=== PATIENT | male | born 1990 | race Caucasian/White ===

== ENCOUNTER 2017-08-18 03:51 | Emergency (ER) | payer SELFPAY ==
[2017-08-18 03:55] VITALS: BP 147/109; PULSE 99; RESP 14; TEMP 36.6; O2SAT 97; BMI 25.8
--- NOTE | 2017-08-18 04:14 | HMH.EDMCLR ---
ED Disposition Clinical Impression: Medical clearance for incarceration Disposition: Home, Self-Care Condition on Discharge: Good Instructions: Drug Abuse and Drug Addiction - Critical Care Critical Care Time: No Attestation: On 08/18/17, the high probability of a clinically significant, sudden or life threatening deterioration of the following system(s) required my full and direct attention, intervention and personal management. The time I documented below is in addition to time spent performing reported procedures but includes the following listed in this critical care notation. Medical Decision Making - Medical Records Medical records reviewed: Yes: I reviewed the patient's medical records. Vital Signs: 08/18/17 03:55 Temperature 97.9 F Temperature Source Oral Pulse Rate [Right Radial] 99 H Respiratory Rate 14 Blood Pressure [Right Arm] 147/109 Blood Pressure Mean [Right Arm] 121 Blood Pressure Source [Right Arm] Automatic Cuff Blood Pressure Position [Right Arm] Sitting 02 Sat by Pulse Oximetry 97 Oxygen Delivery Method Room Air - Lab Data Lab results reviewed: Yes: I reviewed the patient's lab results. - Kiko Inquiry Pt receiving controlled substance: No Medical Clearance HPI - General Chief complaint: Medical Clearance Stated complaint: Medical Clearance Time Seen by Provider: 08/18/17 04:14 Mode of Arrival: Ambulatory Source of Information: Patient, Medical Record Limitations: No Limitations Description of Symptoms (Recalled from ER Triage Doc. by RN): marijuana and meth a couple hours ago - History of Present Illness HPI Narrative: pt w/o any c/o MD complaint: medical clearance requested Onset (ago): hour(s) Reason for Medical Clearance: other (using drugs ) Place: home Alleged Intoxication: Yes Traumatic Symptoms: denies traumatic injury Home medications: Home Medications Medication Instructions Recorded Confirmed No Known Home Medications [No 08/18/17 08/18/17 Known Home Medications] Allergies/Adverse reactions: Allergies Allergy/AdvReac Type Severity Reaction Status Date / Time Cefaclor Allergy Unknown Uncoded 06/13/17 14:52 [facility] History I have reviewed the patient's past medical history: Yes Medical History: Denies:: Cancer, Diabetes Mellitus Type 1, Diabetes Mellitus Type 2, MRSA Amputation: No Fractures: No - Social History Smoking Status: Current every day smoker Alcohol Intake: current Alcohol Intake Frequency:: 3 or more drinks per day Substance Use Type: marijuana, crack/cocaine, methamphetamine - Psychiatric History Expresses thoughts of harming self/others: None Suicide Plan Description: No Plan ROS Obtained: Yes All systems reviewed & no additional complaints - Constitutional Constitutional: Denies fever(s) - Eyes Eyes: Denies change in vision - ENT Ears, Nose, Mouth, and Throat: Denies sore throat - Cardiovascular Cardiovascular: Denies chest pain at rest - Respiratory Respiratory: No chest congestion - Gastrointestinal Gastrointestingal: Denies: abdominal pain - Musculoskeletal Musculoskeletal: Denies joint pain - Integumentary/Breasts Skin/Breast: Denies rash - Neurologic Neurologic: Denies seizure-like activity Physical Exam - General General appearance: alert, in no apparent distress - Head Head exam: normocephalic - Eye Eye exam: Present: PERRL, EOMI. Absent: scleral icterus - ENT ENT exam: Present: mucous membranes moist - Neck Neck exam: Present: trachea midline - Respiratory Respiratory exam: Present: normal lung sounds bilaterally. Absent: respiratory distress - Cardiovascular Cardiovascular exam: Present: regular rate. Absent: systolic murmur - Abdominal Exam Abdominal exam: Present: soft - Extremities Exam Extremities exam: Present: full ROM - Neurological Exam Neurological exam: Present: alert, oriented X3, CN II-XII intact - Skin Skin exam: Absent: rash
--- NOTE | 2017-08-18 04:18 | ED_ITS ---
ED Disposition Clinical Impression: Medical clearance for incarceration Disposition: Home, Self-Care Condition on Discharge: Good Instructions: Drug Abuse and Drug Addiction - Critical Care Critical Care Time: No Attestation: On 08/18/17, the high probability of a clinically significant, sudden or life threatening deterioration of the following system(s) required my full and direct attention, intervention and personal management. The time I documented below is in addition to time spent performing reported procedures but includes the following listed in this critical care notation. Medical Decision Making - Medical Records Medical records reviewed: Yes: I reviewed the patient's medical records. Vital Signs: 08/18/17 03:55 Temperature 97.9 F Temperature Source Oral Pulse Rate [Right Radial] 99 H Respiratory Rate 14 Blood Pressure [Right Arm] 147/109 Blood Pressure Mean [Right Arm] 121 Blood Pressure Source [Right Arm] Automatic Cuff Blood Pressure Position [Right Arm] Sitting 02 Sat by Pulse Oximetry 97 Oxygen Delivery Method Room Air - Lab Data Lab results reviewed: Yes: I reviewed the patient's lab results. - Kiko Inquiry Pt receiving controlled substance: No Medical Clearance HPI - General Chief complaint: Medical Clearance Stated complaint: Medical Clearance Time Seen by Provider: 08/18/17 04:14 Mode of Arrival: Ambulatory Source of Information: Patient, Medical Record Limitations: No Limitations Description of Symptoms (Recalled from ER Triage Doc. by RN): marijuana and meth a couple hours ago - History of Present Illness HPI Narrative: pt w/o any c/o MD complaint: medical clearance requested Onset (ago): hour(s) Reason for Medical Clearance: other (using drugs ) Place: home Alleged Intoxication: Yes Traumatic Symptoms: denies traumatic injury Home medications: Home Medications Medication Instructions Recorded Confirmed No Known Home Medications [No 08/18/17 08/18/17 Known Home Medications] Allergies/Adverse reactions: Allergies Allergy/AdvReac Type Severity Reaction Status Date / Time Cefaclor Allergy Unknown Uncoded 06/13/17 14:52 [facility] History I have reviewed the patient's past medical history: Yes Medical History: Denies:: Cancer, Diabetes Mellitus Type 1, Diabetes Mellitus Type 2, MRSA Amputation: No Fractures: No - Social History Smoking Status: Current every day smoker Alcohol Intake: current Alcohol Intake Frequency:: 3 or more drinks per day Substance Use Type: marijuana, crack/cocaine, methamphetamine - Psychiatric History Expresses thoughts of harming self/others: None Suicide Plan Description: No Plan ROS Obtained: Yes All systems reviewed & no additional complaints - Constitutional Constitutional: Denies fever(s) - Eyes Eyes: Denies change in vision - ENT Ears, Nose, Mouth, and Throat: Denies sore throat - Cardiovascular Cardiovascular: Denies chest pain at rest - Respiratory Respiratory: No chest congestion - Gastrointestinal Gastrointestingal: Denies: abdominal pain - Musculoskeletal Musculoskeletal: Denies joint pain - Integumentary/Breasts Skin/Breast: Denies rash - Neurologic Neurologic: Denies seizure-like activity Physical Exam - Genera
[2017-08-18 04:27] VITALS: BP 138/64; PULSE 74; RESP 16; TEMP -17.7; TEMP 0; O2SAT 96
== END 2017-08-18 04:27 | disposition home or self-care (01) ==
PROVIDERS: Emergency Provider Emergency Medicine; Family Provider Family Medicine
DX: F10.10 Alcohol abuse, uncomplicated (principal); F17.210 Nicotine dependence, cigarettes, uncomplicated; F12.10 Cannabis abuse, uncomplicated; F19.10 Other psychoactive substance abuse, uncomplicated
CPT/HCPCS: 99282

== ENCOUNTER 2020-02-12 04:44 | Emergency (ER) | payer OTHER, SELFPAY ==
[2020-02-12 04:45] VITALS: BP 135/81; PULSE 131; RESP 18; TEMP 36.8; O2SAT 98; BMI 28.8
--- NOTE | 2020-02-12 05:02 | HMH.EDMCLR ---
ED Disposition Clinical Impression: Medical clearance for incarceration Disposition: Home, Self-Care Condition on Discharge: Good Instructions: DI for Drug or Alcohol Withdrawal Referrals: PCP,No [Primary Care Provider] - - Critical Care Critical Care Time: No Attestation: On 02/12/20, the high probability of a clinically significant, sudden or life threatening deterioration of the following system(s) required my full and direct attention, intervention and personal management. The time I documented below is in addition to time spent performing reported procedures but includes the following listed in this critical care notation. Medical Decision Making - Medical Records Medical records reviewed: Yes: I reviewed the patient's medical records. - Kiko Inquiry Pt receiving controlled substance: No Vital Signs: 02/12/20 04:45 Temperature 98.2 F Temperature Source Oral Pulse Rate [Left Radial] 131 H Respiratory Rate 18 Blood Pressure [Right Arm] 135/81 Blood Pressure Mean [Right Arm] 99 Blood Pressure Source [Right Arm] Automatic Cuff Blood Pressure Position [Right Arm] Sitting 02 Sat by Pulse Oximetry 98 Oxygen Delivery Method Room Air Medical Clearance HPI - General Chief complaint: Medical Clearance Stated complaint: Medical Clearance Time Seen by Provider: 02/12/20 05:00 Mode of Arrival: Ambulatory Source of Information: Patient, Medical Record Description of Symptoms (Recalled from ER Triage Doc. by RN): pt brought in for medical clearence. pt reports using meth and heroine yesterday. pt denies any pain at this time. - History of Present Illness HPI Narrative: no specific c/o MD complaint: medical clearance requested Onset (ago): hour(s) Reason for Medical Clearance: medical condition Place: street Traumatic Symptoms: denies traumatic injury Associated Symptoms: denies other symptoms Treatments Prior to Arrival: none Home medications: Home Medications Medication Instructions Recorded Confirmed No Known Home Medications 08/18/17 08/18/17 Allergies/Adverse reactions: Allergies Allergy/AdvReac Type Severity Reaction Status Date / Time Cefaclor Allergy Unknown Uncoded 06/13/17 14:52 [facility] History - Hepatitis A Screen Drug use history?: No High risk sexual behaviors?: No History of sexually transmitted infection?: No Currently employed?: No Childcare worker?: No Do you have indoor plumbing?: Yes Do you have electricity?: Yes Attestation statement:: This patient has been screened for Hepatitis A risk factors. I have reviewed the patient's past medical history: Yes Medical History: Denies:: Cancer, Diabetes Mellitus Type 1, Diabetes Mellitus Type 2, MRSA Amputation: No Fractures: No - Social History Smoking Status: Current every day smoker Tobacco Type: cigarettes # Packs/Day (cigarettes): 1 Alcohol Intake: never Alcohol Intake Frequency:: holidays/special occasions only Substance Use Type: heroin, methamphetamine Last Used Substance: days (ago) Occupational Status: unemployed ROS Obtained: Yes All systems reviewed & no additional complaints - Constitutional Constitutional: Denies fever(s) - Eyes Eyes: Denies eye discharge - ENT Ears, Nose, Mouth, and Throat: Denies sore throat - Cardiovascular Cardiovascular: Denies chest pain - Respiratory Respiratory: No dyspnea - Gastrointestinal Gastrointestingal: Denies: vomiting - Genitourinary Male Genitourinary: Denies hematuria - Musculoskeletal Musculoskeletal: Denies joint swelling - Integumentary/Breasts Skin/Breast: Denies rash - Neurologic Neurologic: Denies focal weakness, Denies tingling/numbness/burning sensations Physical Exam - General General appearance: alert, in no apparent distress - Head Head exam: normocephalic - Eye Eye exam: Present: PERRL, EOMI - ENT ENT exam: Present: normal oropharynx, mucous membranes moist - Neck Neck exam: Present: trachea midline
[2020-02-12 05:05] VITALS: BP 142/83; PULSE 111; RESP 16; TEMP 36.8; O2SAT 98
[2020-02-12 05:10] VITALS: PULSE 116
== END 2020-02-12 05:14 | disposition home or self-care (01) ==
PROVIDERS: Emergency Provider Emergency Medicine
DX: Z00.8 Encounter for other general examination (principal); F11.10 Opioid abuse, uncomplicated; F17.210 Nicotine dependence, cigarettes, uncomplicated
CPT/HCPCS: 99283

== ENCOUNTER → 2021-06-23 13:23 | Outpatient (CLI) | payer BC, OTHER, SELFPAY | PROVIDERS: Visit Provider Nurse Practitioner | DX: Z20.822 Contact with and (suspected) exposure to COVID-19 (principal) | CPT/HCPCS: C9803; U0003; U0005 ==

== ENCOUNTER → 2021-07-21 13:46 | Outpatient (CLI) | payer MEDICAID, SELFPAY | PROVIDERS: Visit Provider Nurse Practitioner | DX: Z20.822 Contact with and (suspected) exposure to COVID-19 (principal) | CPT/HCPCS: C9803; U0003; U0005 ==

== ENCOUNTER 2022-05-01 18:47 | Emergency (ER) | payer MEDICAID, SELFPAY ==
[2022-05-01 18:48] VITALS: BP 127/76; PULSE 87; RESP 17; TEMP 36.7; O2SAT 98; BMI 24.3
--- NOTE | 2022-05-01 19:29 | HMH.EDGENADL ---
Discharge Plan Disposition Patient Disposition: Home, Self-Care Condition: Good Prescriptions Prescriptions: No Action No Known Home Medications Referrals Follow up/Referrals: Provider,Referral, MD [Primary Care Provider] - See instructions Clinical Impressions Clinical Impression: Medical clearance for incarceration, Opioid abuse Discharge ED Provider: Sacha Garcia General Adult HPI General Chief complaint: Medical Clearance Stated complaint: medical clearance Time Seen by Provider: 05/01/22 19:00 Mode of Arrival: Ambulatory Source of Information: Patient and Law Enforcement Limitations: No Limitations Description of Symptoms (Recalled from ER Triage Doc. by RN): Pt is brought by PD for medical clearance. Pt states today he has used drugs, snorted suboxone and fentanyl. He denies any issues. He is A&Ox4. He reports a little nausea but no vomiting. History of Present Illness HPI narrative: Patient is a 32-year-old male who presents with concern for medical clearance. He reports that earlier today he started Suboxone and fentanyl. He says that this happened approximately an hour and a half prior to arrival. He denies any shortness of breath. Denies any chest pain. Denies any numbness or tingling. Denies any trauma. Denies any other coingestions. He does state that he feels a little bit nauseous but has not vomited. Related Data Home Medications Medication Instructions Recorded Confirmed No Known Home Medications 08/18/17 08/18/17 Allergies Allergy/AdvReac Type Severity Reaction Status Date / Time Cefaclor Allergy Unknown Uncoded 06/13/17 14:52 [facility] PFSH Social History Smoking Status: Current every day smoker tobacco type: cigarettes packs per day: 1 alcohol intake: never substance use type: heroin and methamphetamine current occupational status: unemployed Travel in the last 8 weeks: None ROS Obtained: Yes All systems reviewed & no additional complaints except as documented A 14 point review of system was performed otherwise negative except per HPI Physical Exam General General appearance: alert and in no apparent distress Head Head exam: atraumatic, normocephalic and normal inspection Eye Eye exam: Present normal appearance, PERRL and EOMI ENT ENT exam: Present normal exam, normal oropharynx, mucous membranes moist, TM's normal bilaterally and normal external ear exam Neck Neck exam: Present normal inspection, full ROM and trachea midline; Absent meningismus or lymphadenopathy Chest Chest inspection: Present normal inspection and symmetric chest wall rise; Absent tenderness Respiratory Respiratory exam: Present normal lung sounds bilaterally; Absent respiratory distress Cardiovascular Cardiovascular exam: Present regular rate and normal rhythm; Absent JVD Abdominal Exam Abdominal exam: Present soft and normal bowel sounds; Absent distention, tenderness or guarding Extremities Exam Extremities exam: Present normal inspection, full ROM and normal capillary refill; Absent calf tenderness Back Exam Back exam: Present normal inspection; Absent tenderness Neurological Exam Neurological exam: Present alert and oriented X3 Psychiatric Psychiatric exam: Present normal affect and normal mood Skin Skin exam: Present warm, dry, intact and normal color Lymphatic Lymphatic Findings: no adenopathy Medical Decision Making Medical Records Medical records reviewed: Yes I reviewed the patient's medical records. Kiko Inquiry Pt receiving controlled substance: No Vital Signs: 05/01/22 18:48 05/01/22 19:45 05/01/22 19:45 Temperature 98.1 F 98.2 F Temperature Source Oral Oral Pulse Rate 80 Pulse Rate [Right] 87 Respiratory Rate 17 18 Blood Pressure 122/66 Blood Pressure [Right Arm] 127/76 Blood Pressure Mean [Right Arm] 93 Blood Pressure Source [Right Arm] Automatic Cuff 02 Sat by Pulse Oximetry 98 Oxygen Delivery Method Room Air Room Air R
[2022-05-01 19:45] VITALS: BP 122/66; PULSE 80; RESP 18; TEMP 36.8; O2SAT 98
== END 2022-05-01 19:52 | disposition home or self-care (01) ==
PROVIDERS: Emergency Provider Student in an Organized Health Care Education/Training Program
DX: F11.10 Opioid abuse, uncomplicated (principal); R11.0 Nausea; F17.210 Nicotine dependence, cigarettes, uncomplicated; Z88.8 Allergy status to other drugs, medicaments and biological substances
CPT/HCPCS: 99282

== ENCOUNTER 2023-11-15 13:40 | Emergency (ER) | payer MEDICAID, SELFPAY ==
[2023-11-15 13:41] VITALS: BP 119/70; PULSE 103; RESP 18; TEMP 36.8; O2SAT 98; BMI 25.8
[2023-11-15 14:04] LABS: UTC Strep Screen (Rapid) Positive (Negative)
--- NOTE | 2023-11-15 14:04 | ED_ITS ---
Discharge Plan Disposition Patient Disposition: Home, Self-Care Condition: Good Prescriptions Prescriptions: New prednisone 20 mg tablet 20 mg PO BID 3 Days Qty: 6 0RF amoxicillin 875 mg tablet 875 mg PO Q12H Qty: 20 0RF [id number] [Bromfed DM] 2-30-10 mg/5 mL Syrup 5 ml PO Q6H PRN (Reason: Cough) Qty: 240 0RF Referrals Follow up/Referrals: Provider,Referral, MD [Primary Care Provider] - See instructions Activity Restrictions/Add. Instructions Additional Instructions/Restrictions: Drink plenty of fluids. Take tylenol or ibuprofen for pain or fever. Take the medications as directed. Follow up with your regular doctor. GO TO THE ER FOR ANY WORSENING SYMPTOMS Throw your tooth brush away and get a new one. Clinical Impressions Clinical Impression: Strep throat Stand Alone Forms Stand Alone Forms: Work/School Release Instructions Patient Instructions: Strep Throat, DI for Strep Throat Discharge ED Provider: Michael Echevarria [facility] General Stated complaint: sore throat, headache Mode of Arrival: Ambulatory Source of Information: Patient Limitations: No Limitations Time Seen by Provider: 11/15/23 14:04 Description of Symptoms (Recalled from Triage Doc. by RN): Pt's symptoms are GARCIA, sore throat, and body aches. HEENT Symptoms (Recalled from RN notes): Yes Resp Symptoms (Recalled from RN notes): No Skin Symptoms (Recalled from RN notes): No MS Symptoms (Recalled from RN notes): No Functional Status (Recalled from RN notes): n/a History of Present Illness Provider Complaint: He states that for the past 2 days he has had worsening sore throat, chills, and malaise. Related Data Previous Rx's Medication Instructions Recorded amoxicillin 875 mg tablet 875 mg PO Q12H #20 tabs 11/15/23 [id number] 5 ml PO Q6H PRN Cough #240 mL 11/15/23 2 mg-30 mg-10 mg/5 mL oral syrup (Bromfed DM) prednisone 20 mg tablet 20 mg PO BID 3 days #6 tabs 11/15/23 Allergies Allergy/AdvReac Type Severity Reaction Status Date / Time Cefaclor Allergy Unknown Uncoded 06/13/17 14:52 Worker's Comp Is this a Worker's Comp case?: No [facility] Disclaimer: The information contained in this section may have been updated after the patient was seen, as this information can be updated by other users. Social History Smoking Status: Current every day smoker tobacco type: cigarettes packs per day: 1 alcohol intake: never substance use type: heroin and methamphetamine current occupational status: unemployed Travel in the last 8 weeks: None ROS Obtained: Yes All systems reviewed & no additional complaints except as documented Constitutional Constitutional: Reports chills and Reports fever(s) Eyes Eyes: Denies eye discharge ENT Ears, Nose, Mouth, and Throat: Reports as per HPI Cardiovascular Cardiovascular: Denies chest pain Respiratory Respiratory: Denies chest congestion and Reports cough Gastrointestinal Gastrointestingal: Reports nausea; Denies abdominal pain, constipation, cramping, diarrhea or vomiting Musculoskeletal Musculoskeletal: Denies arthralgias Integumentary/Breasts Skin/Breast: Denies rash Neurologic Neurologic: Denies paresthesias Physical Exam General General appearance: alert and in no apparent distress Head Head exam: atraumatic, normocephalic and normal inspection Eye Eye exam: Present normal appearance, PERRL and EOMI ENT ENT exam: Present mucous membranes moist and normal external ear exam Expanded ENT Exam TM/Canal exam: Bilateral TM: erythema and bulging Nose exam: Absent sinus tenderness Mouth exam: Present normal external inspection; Absent drooling Teeth exam: Present normal inspection Throat exam: Present tonsillar erythema, tonsillomegaly and tonsillar exudate Neck Neck exam: Present normal inspection, full ROM and trachea midline; Absent tenderness, meningismus or lymphadenopathy Chest Chest inspection: Present normal inspection and symmetric chest wall rise; Absent tenderness Respiratory Respiratory exam: Present normal lung sounds bilaterally; Absent respiratory distress, wheezes, stridor or accessory muscle use Cardiovascular Cardiovascular exam: Present regular rate and normal rhythm; Absent systolic murmur or diastolic murmur Abdominal Exam Abdominal exam: Present soft and normal bowel sounds; Absent distention, tenderness, guarding, rebound or rigidity Extremities Exam Extremities exam: Present normal inspection and normal capillary refill; Absent calf tenderness Back Exam Back exam: Present normal inspection and full ROM; Absent tenderness, CVA tenderness (R) or CVA tenderness (L) Neurological Exam Neurological exam: Present alert, oriented X3 and CN II-XII intact Psychiatric Psychiatric exam: Present normal affect and normal mood Skin Skin exam: Present warm, dry, intact and normal color Medical Decision Making Medical Records Medical records reviewed: No I reviewed the patient's medical records. Kiko Inquiry Pt receiving controlled substance: No Vital Signs: 11/15/23 13:41 Temperature 98.2 F Temperature Source Oral Pulse Rate [Right Radial] 103 H Respiratory Rate 18 Blood Pressure [Right Arm] 119/70 Blood Pressure Mean [Right Arm] 86 Blood Pressure Source [Right Arm] Automatic Cuff Blood Pressure Position [Right Arm] Sitting 02 Sat by Pulse Oximetry 98 Oxygen Delivery Method Room Air Lab Data Lab results reviewed: Yes I reviewed the patient's lab results. Lab Results 11/15/23 13:58: Strep Scn [facility] Positive A
[2023-11-15 14:32] VITALS: BP 0/0; PULSE 96; RESP 18; TEMP 36.9; O2SAT 97
== END 2023-11-15 14:32 | disposition home or self-care (01) ==
PROVIDERS: Emergency Provider Nurse Practitioner Family
DX: J02.0 Streptococcal pharyngitis (principal); R51.9 Headache, unspecified; R68.83 Chills (without fever); R53.81 Other malaise; J02.9 Acute pharyngitis, unspecified; F17.210 Nicotine dependence, cigarettes, uncomplicated
CPT/HCPCS: 87880; 99204; 99212; G0463

== ENCOUNTER 2024-12-16 04:27 | Emergency (ER) | payer OTHER, SELFPAY ==
[2024-12-16 04:33] VITALS: BP 155/75; PULSE 96; RESP 18; TEMP 36.6; O2SAT 99; BMI 27.3
--- NOTE | 2024-12-16 04:43 | ED_ITS ---
Discharge Plan Disposition Patient Disposition: Home, Self-Care Prescriptions Prescriptions: No Action buprenorphine-naloxone [Suboxone] 8-2 mg film 2 film buccal DAILY Rx Instructions: place 1 film on inside of (each) cheek Referrals Follow up/Referrals: Christiano Camarena APRN [Primary Care Provider, Family Practice] - See instructions Activity Restrictions/Add. Instructions Additional Instructions/Restrictions: Please apply erythromycin ointment as discussed. Consider following up with an eye doctor if symptoms worsen or do not improve. Clinical Impressions Clinical Impression: Acute foreign body of right cornea Qualifiers: Encounter type: initial encounter Qualified Code(s): T15.01XA - Foreign body in cornea, right eye, initial encounter Print Language Print Language: Nigerian Discharge ED Provider: Parminder Flores Adult HPI General Chief complaint: Eye Problems Stated complaint: AO 12/15/24 1700 FB right eye Time Seen by Provider: 12/16/24 04:43 Mode of Arrival: Ambulatory Source of Information: Patient Description of Symptoms (Recalled from ER Triage Doc. by RN): Pt presents to the ED for evaluation of possible foriegn body to his right eye, pt reports to working on a house with my mom reporting that he has been trying to flush his eye at home with no succsess. History of Present Illness HPI narrative: 35-year-old male without significant past medical history presents for concern for right eye foreign body. He reports that he was moving around some wood yesterday when he felt something get into his eye. He tried to wash out and use a Q-tip but it still in there. He and his significant other report there is a small black dot that they can see in the right eye. He reports pain and irritation. Related Data Home Medications ?Medication ?Instructions ?Recorded ?Confirmed buprenorphine 8 mg-naloxone 2 mg 2 film buccal DAILY 0 11/13/24 11/18/24 sublingual film (Suboxone) Allergies Allergy/AdvReac Type Severity Reaction Status Date / Time Cefaclor Allergy Unknown Uncoded 06/13/17 14:52 [facility] Disclaimer: The information contained in this section may have been updated after the patient was seen, as this information can be updated by other users. Social History (Updated 11/13/24 @ 16:00 by ELISEO Rodriguez) Smoking Status: Current every day smoker tobacco type: cigarettes packs per day: 1 alcohol intake: never substance use type: former substance user current occupational status: unemployed Travel in the last 8 weeks?: None marital status: single number of children: 1 education level: high school service: No chcf: No Have you lived/traveled outside US in past 30 days?: No Contact w/someone who lives/traveled outside US past 30 days?: No Exposure to someone with infectious disease in past 14 days?: No Do you have a fever (greater than 100.4 F or 38 C)?: No Have you tested positive for COVID-19?: No Exposed to someone with COVID-19 in past 14 days?: No Do you have a sore throat?: No Do you have a cough?: No Do you have any weakness?: No Do you have any diarrhea?: No Are you experiencing any unusual bleeding?: No Do you have any muscle aches/pain?: No Do you have any abdominal pain?: No Are you experiencing loss of taste or smell?: No Other Medical History Have you received the Flu Vaccine for this season: No Have you received the Pneumonia Vaccine: No ROS Obtained: Yes All systems reviewed & no additional complaints except as documented Physical Exam General General appearance: alert and in no apparent distress Head Head exam: atraumatic and normocephalic Eye Eye exam: Present PERRL, EOMI and other (Right eye conjunctival injection, small black foreign body in the 8 o'clock position of the cornea. No other fluorescein uptake noted.) ENT ENT exam: Present normal oropharynx and normal external ear exam Neck Neck exam: Present normal inspection and full ROM Chest Chest inspection: Present normal inspection and symmetric chest wall rise; Absent tenderness Respiratory Respiratory exam: Present normal lung sounds bilaterally; Absent respiratory distress Cardiovascular Cardiovascular exam: Present regular rate and normal rhythm Abdominal Exam Abdominal exam: Present soft; Absent distention, tenderness or guarding Extremities Exam Extremities exam: Present normal inspection; Absent edema or joint swelling Back Exam Back exam: Present normal inspection; Absent tenderness Neurological Exam Neurological exam: Present alert and oriented X3; Absent motor sensory deficit Psychiatric Psychiatric exam: Present normal affect and normal mood Skin Skin exam: Present warm, dry and normal color Lymphatic Lymphatic Findings: no adenopathy Medical Decision Making Medical Records Medical records reviewed: Yes I reviewed the patient's medical records. Screening: Per USPSTF and CDC recommendations, given the prevalence of disease in our region, it is our hospital?s policy to screen for HIV and viral Hepatitis for all patients aged 18 and over and those with ongoing risk factors. Kiko Inquiry Pt receiving controlled substance: No Kiko was queried for this patient: No Vital Signs: 12/16/24 04:33 12/16/24 05:10 Temperature 98 F 98 F Temperature Source Oral Oral Pulse Rate 95 H Pulse Rate [Radial] 96 H Respiratory Rate 18 16 Blood Pressure 130/72 Blood Pressure [Right Arm] 155/75 H Blood Pressure Mean [Right Arm] 101 Blood Pressure Source Automatic Cuff Blood Pressure Position Sitting Blood Pressure Position [Right Arm] Sitting 02 Sat by Pulse Oximetry 99 Oxygen Delivery Method Room Air Room Air Lab Data Lab results reviewed: Yes I reviewed the patient's lab results. Orders (Tests/Meds): ED MEDICATIONS Discontinued Medications Generic Name Dose Route Start Last Admin Trade Name Freq PRN Reason Stop Dose Admin Erythromycin 1 gm 12/16/24 05:21 Erythromycin Base 1 Gm Oint...G. OP 12/16/24 05:22 ONCE ONE Eye Irrigation Solution 120 ml 12/16/24 05:21 Eye Wash Irrigation Soln 118ml Bottle OP 12/16/24 05:22 ONCE ONE Fluorescein Sodium 1 mg 12/16/24 05:21 Fluorescein Sodium 1mg Strip OP 12/16/24 05:22 ONCE ONE Tetracaine HCl 0 ml 12/16/24 05:21 Tetracaine 0.5% Opth Jia 15ml OP 12/16/24 05:22 ONCE ONE Medical Decision Narrative: 34-year-old male without significant past medical history presents for right eye foreign body. History was obtained via interactive discussion with patient. On arrival, patient is [afebrile, hemodynamically stable, satting appropriately, alert, oriented x4, GCS 15], moving all extremities spontaneously. Full physical exam performed and significant for small black spot in the right 8 o'clock position on the cornea. Differential diagnosis includes but not limited to corneal foreign body, globe injury, corneal abrasion. Physical exam is consistent with isolated corneal foreign body, no other areas of fluorescein uptake. Attempted to irrigate without success. The spot was removed with a Q-tip. No retained foreign body noted. Patient discharged with erythromycin ointment. Recommended he follow-up with ophthalmology if symptoms worsen or do not improve. Procedures Risk/Benefits of Procedure(s) Were Explained: Yes Eye Exam/FB Removal Location: eye (R) Topical anesthetic used: tetracaine Fluorescein Stick(s) used: Yes Time Out performed: Yes Procedure performed under: direct visualization with magnification Foreign body: metal Evidence of corneal penetration: No Technique: irrigation and cotton tip swab Post-procedure medication: ophthalmic antibiotic Eye irrigated w/saline (#ccs): 200 Patient tolerated procedure: well and no complications Critical Care Critical Care Time Critical Care Time: No
--- OUTSIDE RECORDS SUMMARY | 2024-12-16 04:47 | XMS_ITS | Encounter Summary ---
Author Organization Healthcare Address [address] [id number] Care Team Providers Care Supervisor Process Testing Name Role Phone Pcp, No Primary Care Provider Unavailabl e Encounter Details Date Type Department Care Team ([facility] st Contact Info) Description 05/03/2024 Orders Only External Location [address] [place] [address] Provider, External Social History Tobacco Use Types Packs/Day Years Used Date Smoking Tobacco: Never Assessed Sex and Gender Information Value Date Recorded Sex Assigned at Not on file Legal Sex Male 3:25 PM EST Gender Identity Not on file Sexual Orientation Not on file documented as of this encounter Plan of Treatment Not on file documented as of this encounter Procedures Procedure Name Priority Date/Time Associated Diagnosis Comments XR MSK OUTSIDE IMAGES 05/03/2024 1:55 PM EST documented in this encounter Results * XR MSK OUTSIDE IMAGES (05/03/2024 1:55 PM EST) Anatomical Region Laterality Modality Radiographic Mary ging 05/03/2024 1:55 PM EST us External Provider IMG XR PROCEDURES Final Result documented in this encounter Visit Diagnoses Not on filedocumented in this encounter Care Teams Supervisor Process Testing Relationship Specialty Start Date End Date Pcp, No [address] [place] [address] PCP - General Family Medicine 05/21/24 documented as of this encounter
--- OUTSIDE RECORDS SUMMARY | 2024-12-16 04:47 | XMS_ITS | Encounter Summary ---
Author Organization Healthcare Address [address] [id number] Care Team Providers Care Pelt Grader Name Role Phone Pcp, No Primary Care Provider Unavailabl e Encounter Details Date Type Department Care Team ([facility] st Contact Info) Description 05/03/2024 Orders Only External Location [address] [place] [address] Provider, External Social History Tobacco Use Types [...] Name Priority Date/Time Associated Diagnosis Comments XR OUTSIDE IMAGES 05/03/2024 2:06 PM EST documented in this encounter Results * XR OUTSIDE IMAGES (05/03/2024 2:06 PM EST) Anatomical Region Laterality Modality Radiographic Mary ging 05/03/2024 2:06 PM EST us External Provider IMG XR PROCEDURES Final Result documented in this encounter Visit Diagnoses Not on filedocumented in this encounter Care Teams Pelt Grader Relationship Specialty Start Date End Date Pcp, No [address] [place] [address] PCP - General Family Medicine 05/21/24 documented as of this encounter
--- OUTSIDE RECORDS SUMMARY | 2024-12-16 04:47 | XMS_ITS | Encounter Summary ---
Author Organization Healthcare Address [address] [id number] Care Team Providers Care Portable Grinding Machine Operator Name Role Phone Pcp, No Primary Care Provider Unavailabl e Encounter Details Date Type Department Care Team ([facility] st Contact Info) Description 05/03/2024 Orders Only External Location [address] [place] [address] Provider, External Social History Tobacco Use Types [...] Diagnosis Comments XR MSK OUTSIDE IMAGES 05/03/2024 1:46 PM EST documented in this encounter Results * XR MSK OUTSIDE IMAGES (05/03/2024 1:46 PM EST) Anatomical Region Laterality Modality Radiographic Mary ging 05/03/2024 1:46 PM EST us External Provider IMG XR PROCEDURES Final Result documented in this encounter Visit Diagnoses Not on filedocumented in this encounter Care Teams Portable Grinding Machine Operator Relationship Specialty Start Date End Date Pcp, No [address] [place] [address] PCP - General Family Medicine 05/21/24 documented as of this encounter
--- OUTSIDE RECORDS SUMMARY | 2024-12-16 04:47 | XMS_ITS | Encounter Summary ---
Author Organization Healthcare Address [address] [id number] Care Team Providers Care Awning Assembler Name Role Phone Pcp, No Primary Care Provider Unavailabl e Encounter Details Date Type Department Care Team ([facility] st Contact Info) Description 05/03/2024 Orders Only External Location [address] [place] [address] Provider, External Social History Tobacco Use Types [...] Procedure Name Priority Date/Time Associated Diagnosis Comments CT MSK OUTSIDE IMAGES 05/03/2024 3:28 PM EST documented in this encounter Results * CT MSK OUTSIDE IMAGES (05/03/2024 3:28 PM EST) Anatomical Region Laterality Modality Computed Tomogra phy 05/03/2024 3:28 PM EST External Provider IMG CT PROCEDURES Final Result documented in this encounter Visit Diagnoses Not on filedocumented in this encounter Care Teams Awning Assembler Relationship Specialty Start Date End Date Pcp, No [address] [place] [address] PCP - General Family Medicine 05/21/24 documented as of this encounter
--- OUTSIDE RECORDS SUMMARY | 2024-12-16 04:47 | XMS_ITS | Encounter Summary ---
Author Organization Healthcare Address [address] [id number] Care Team Providers Care Counter Cutter Name Role Phone Pcp, No Primary Care Provider Unavailabl e Encounter Details Date Type Department Care Team (Late st Contact Info) Description 05/03/2024 Orders Only External Location [address] [place] [address] Provider, External Social History Tobacco Use Types [...] Associated Diagnosis Comments XR OUTSIDE IMAGES 05/03/2024 1:27 PM EST documented in this encounter Results * XR OUTSIDE IMAGES (05/03/2024 1:27 PM EST) Anatomical Region Laterality Modality Radiographic Mary ging 05/03/2024 1:27 PM EST us External Provider IMG XR PROCEDURES Final Result documented in this encounter Visit Diagnoses Not on filedocumented in this encounter Care Teams Counter Cutter Relationship Specialty Start Date End Date Pcp, No [address] [place] [address] PCP - General Family Medicine 05/21/24 documented as of this encounter
--- OUTSIDE RECORDS SUMMARY | 2024-12-16 04:47 | XMS_ITS | Clinical Summary ---
Author Organization Healthcare Address [address] [place] [address] Care Team Providers Care Manometer Technician Name Role Phone Pcp, No Primary Care Provider Unavailabl e Allergies Active Allergy Reactions Criticality Noted Date Comments Cefaclor Rash Low 05/22/2024 Medications Buprenorphine HCl-Naloxone HCl (Suboxone) 8-[address] 2 Film (16 mg) under the tongue 1 (one) time each day. Active mirtazapine (Remeron) 30 MG tablet Take 1 tablet (30 mg) by mouth every night. Active naloxone (Narcan) 4 mg/0.1 mL nasal sprayIndication s:Opioid Overdose 1. Give 1 spray in nostril for no/slow breathing or cannot wake after opioid use 2. Call 911 3. Repeat in other nostril if symptoms continue 1 each 11 4 05/28/20 25 Active ibuprofen 400 MG tablet Take 1 tablet (400 mg) by mouth every 6 (six) hours if needed for moderate pain. 50 tablet 4 Active acetaminophen (Tylenol) 500 MG tablet Take 2 tablets (1,000 mg) by mouth every 6 (six) hours if needed for pain. 100 tablet 4 Active gabapentin (Neurontin) 100 MG capsule Take 1 capsule (100 mg) by mouth 3 (three) times a day if needed (Pain). 30 capsule 4 Active methocarbamol (Robaxin) 500 MG tablet Take 2 tablets (1,000 mg) by mouth 4 (four) times a day if needed for muscle spasms. 50 tablet 4 Active senna-docusate (Lorena-Colace) 8.6-50 MG tablet Take 1 tablet by mouth 2 (two) times a day. 28 tablet 4 Active Active Problems Problem Noted Date Diagnosed Date Closed fracture of left tibial plateau Left foot pain 06/11/2024 Closed fracture of tibial plateau, left, initial encounter 05/27/2024 Tibial plateau fracture, lef t, closed, with delayed healing, subsequent encounter 05/27/2024 Tibial plateau fracture, left, closed, initial e ncounter 05/21/2024 Family History Medical History Relation Name Comments Anesthesia problems Neg Hx Social History Tobacco Use Types Packs/Day Years Used Date Smoking Tobacco: Every Day Cigarettes 0.5 5 Smokeless Tobacco: Never Tobacco Cessation:Ready to Q uit: Not Asked; Counseling Given: Not Answered Alcohol Use Standard Drinks/Week Comments Never 0 (1 standard drink = 0.6 oz pur e alcohol) PHQ-2 Answer Date Recorded Patient Health Questionnaire-2 Score 0 05/21/2024 PHQ-9 Answer Date Recorded Patient Health Questionnaire-9 Score 0 05/21/2024 Sex and Gender Information Value Date Recorded Sex Assigned at Not on file Legal Sex Male 3:25 PM EST Gender Identity Not on file Sexual Orientation Not on file Last Filed Vital Signs Vital Sign Reading Time Taken Comments Blood Pressure 137/77 06/11/2024 1:34 PM EST Pulse 105 06/11/2024 1:34 PM EST Temperature 36.9 C (98.5 F) 06/11/2024 1:34 PM EST Respiratory Rate 13 05/27/2024 5:45 PM EST Oxygen Saturation 96% 06/11/2024 1:34 PM EST Inhaled Oxygen Concentration - - Weight 77.1 kg (170 lb) 06/11/2024 1:34 PM EST Height 172.7 cm (5' 8 ) 06/11/2024 1:34 PM EST Body Mass Index 25.85 06/11/2024 1:34 PM EST Plan of Treatment Health Maintenance Due Date Last Done Comments [facility]-HIV Screening 1992 [facility]-Hepatitis C Screening 1992 [facility]-/Child/Adol SDOH Screenings 1992 [facility]-IPV Vaccines (2 of 3 - 4-dose series) 03/15/1996 02/16/1996 [facility]-Varicella Vaccines (1 of 2 - 13+ 2-dose series) 02/09/2005 HPV Vaccines (1 - Male 3-dos e series) 02/09/2007 [facility]- SDOH Screenings 02/09/2010 [facility]-Adult SDOH Screenings 02/09/2010 [facility]-Pneumococcal Vaccine: Pediatrics (0 to 5 Years) and At-Risk Patients (6 to 49 Years) (1 of 2 - PCV) 02/09/2011 [facility]-DTaP,Tdap,and Td Vaccine s (4 - Td or Tdap) 12/09/2023 12/08/2013, 04/15/2003, 02/16/1996 [id number]-[id number]-61 Vaccine ( - season) 2024 [facility]-Influenza Vaccine (Seaso n Ended) 2025 [facility]-Depression Screening 05/21/2025 024, 05/21/2024 [facility]-Zoster Vaccines (1 of 2) 02/09/2042 [facility]-Hepatitis B Vaccines Completed 004, 05/26/2003, 04/15/2003 [facility]-Obesity Intervention Completed 024, 05/21/2024, 05/21/2024 [facility]-HIB Vaccines Aged Out No longer e ligible based on patient's age to complete this topic [facility]-Hepatitis A Vaccines Aged Out No longer eligible based on patient's age to complete this topic [facility]-Rotavirus Vaccines Aged Out No lo nger eligible based on patient's age to complete this topic Medical Devices Implanted Type Area Precision Filer Hand Device Identifier Shelf Expiration Date Model / Serial / Lot Plate 1.6mm Holding K-Wire Trocar P 75mm Globus - [id number] Implanted:Qty: 1 on 05/27/2024 by Amish Davidson MD at [facility] Left: Knee [employer]-[id number] 05/27/2025 [id number] / / Screw 3.5x34mm Cocr Non-Locking Gl[employer] Med - [id number] Implanted:Qty: 1 on 05/27/2024 by Amish Davidson MD at [facility] Left: Knee [employer]-[id number] 05/27/2025 [id number] / / Screw 3.5x32mm Cocr Non-Locking Glob[employer] Med - [id number] Implanted:Qty: 1 on 05/27/2024 by Amish Davidson MD at [facility] Left: Knee [employer]-[id number] 05/27/2025 [id number] / / Screw 3.5x30mm Cocr Non-Locking - [id number] Implanted:Qty: 1 on 05/27/2024 by Amish Davidson MD at [facility] Left: Knee [employer]-[id number] 05/27/2025 [id number] / / Screw 2.5x60mm Cocr Locking - [id number] Implanted:Qty: 1 on 05/27/2024 by Amish Davidson MD at [facility] Left: Knee [employer]-[id number] 05/27/2025 [id number] / / Screw 2.5x45mm Cocr Locking [employer] Med - [id number] Implanted:Qty: 1 on 05/27/2024 by Amish Davidson MD at [facility] Left: Knee [employer]-[id number] 05/27/2025 [id number] / / Screw 2.5x40mm Cocr Locking - [id number] Implanted:Qty: 1 on 05/27/2024 by Amish Davidson MD at [facility] Left: Knee [employer]-[id number] 05/27/2025 [id number] / / Implant Mgnum Bone Void Filler 10cc - [id number] - [id number] Implanted:Qty: 1 on 05/27/2024 by Amish Davidson MD at [facility] Left: Patella [place] [employer]-[id number] 2026 [id number] / [id number] / Plate Lateral Proxtibia Xr Lt 6h 140mm Globus M - [id number] Implanted:Qty: 1 on 05/27/2024 by Amish Davidson MD at [facility] Left: Knee [employer]-[id number] 05/27/2025 [id number] / / Screw 3.5x60mm Cocr Locking - [id number] Implanted:Qty: 1 on 05/27/2024 by Amish Davidson MD at [facility] Left: Knee [employer]-[id number] 05/27/2025 [id number] / / Screw 3.5x85mm Cocr Non-Locking Gl[employer] Med - [id number] Implanted:Qty: 1 on 05/27/2024 by Amish Davidson MD at [facility] Left: Knee [employer]-[id number] 05/27/2025 [id number] / / Screw 3.5x80mm Cocr Non-Locking - [id number] Implanted:Qty: 1 on 05/27/2024 by Amish Davidson MD at [facility] Left: Knee [employer]-[id number] 05/27/2025 [id number] / / Screw 3.5x75mm Cocr Non-Locking [employer] Med - [id number] Implanted:Qty: 1 on 05/27/2024 by Amish Davidson MD at [facility] Left: Knee [employer]-[id number] 05/27/2025 [id number] / / Screw 3.5x60mm Cocr Non-Locking - [id number] Implanted:Qty: 1 on 05/27/2024 by Amish Davidson MD at [facility] Left: Knee [employer]-[id number] 05/27/2025 [id number] / / Screw 3.5x48mm Cocr Non-Locking [employer] Med - [id number] Implanted:Qty: 1 on 05/27/2024 by Amish Davidson MD at [facility] Left: Knee [employer]-[id number] 05/27/2025 [id number] / / Screw 3.5x38mm Cocr Non-Locking [employer] Med - [id number] Implanted:Qty: 1 on 05/27/2024 by Amish Davidson MD at [facility] Left: Knee [employer]-[id number] 05/27/2025 [id number] / / Insurance Advance Directives * Full Code (Latest Code Status on File) Date Activated Date Inactivated Comments 05/27/2024 12:36 PM 05/28/2024 6:05 PM Question Answer Comments Patient has decision-making capacity? Yes Care Teams Manometer Technician Relationship Specialty Start Date End Date Pcp, No [address] [place] [address] PCP - General Family Medicine 05/21/24
--- OUTSIDE RECORDS SUMMARY | 2024-12-16 04:47 | XMS_ITS | Encounter Summary ---
Author Organization Healthcare Address [address] [id number] Care Team Providers Care Social Economist Name Role Phone Pcp, No Primary Care Provider Unavailabl e Reason for Referral * Consultation (Routine) - Closed Specialty Diagnoses / Procedures Referred By Contac t Referred To Contact Orthopaedic Surgery Diagnoses Closed nondisplaced fracture of medial condyle of left tibia, initial encounter Larisa Hernandez PA [address] [place] [address] Phone: tel: fax: Amish aDvidson MD [address] [address] Phone: tel: fax: Referral ID Status Reason Start Date Expiration Date V isits Requested Visits Authorized [id number] Closed Specialty Services Required 05/16/2024 11/15/2025 1 1 Encounter Details Date Type Department Care Team (Late st Contact Info) Description 05/16/2024 Community [facility] [address] [place] [address] Larisa Hernandez PA [address] [place] [address] Closed nondisplaced fracture of medial condyle of left tibia, initial encounter (Primary Dx) Social History Tobacco Use Types Packs/Day Years Used Date Smoking Tobacco: Never Assessed Sex and Gender Information Value Date Recorded Sex Assigned at Not on file Legal Sex Male 3:25 PM EST Gender Identity Not on file Sexual Orientation Not on file documented as of this encounter Plan of Treatment Scheduled Referrals Name Type Priority Associated Diagnoses Orde r Schedule Ambulatory referral to General Orthopaedics Outpatient Referral Routine Closed nondisplaced fracture of medial condyle of left tibia, initial encounter Expected: 05/23/2024, Expires: 11/13/2025 documented as of this encounter Visit Diagnoses Diagnosis Closed nondisplaced fracture of medial condyle of left tibia, initial encounter- Primary documented in this encounter Care Teams Social Economist Relationship Specialty Start Date End Date Pcp, Donya [address] [place] [address] PCP - General Family Medicine 05/21/24 documented as of this encounter
--- OUTSIDE RECORDS SUMMARY | 2024-12-16 04:47 | XMS_ITS | Encounter Summary ---
Author Organization Healthcare Address [address] [id number] Care Team Providers Care Mutuel Clerk Name Role Phone Pcp, No Primary Care Provider Unavailabl e Encounter Details Date Type Department Care Team ([facility] st Contact Info) Description 05/03/2024 Orders Only External Location [address] [place] [address] Provider, External Social History Tobacco Use Types [...] Diagnosis Comments XR [facility] OUTSIDE IMAGES 05/03/2024 2:00 PM EST documented in this encounter Results * XR [facility] OUTSIDE IMAGES (05/03/2024 2:00 PM EST) Anatomical Region Laterality Modality Radiographic Mary ging 05/03/2024 2:00 PM EST us External Provider IMG XR PROCEDURES Final Result documented in this encounter Visit Diagnoses Not on filedocumented in this encounter Care Teams Mutuel Clerk Relationship Specialty Start Date End Date Pcp, No [address] [place] [address] PCP - General Family Medicine 05/21/24 documented as of this encounter
[2024-12-16 05:10] VITALS: BP 130/72; PULSE 95; RESP 16; TEMP 36.6; O2SAT 98
== END 2024-12-16 05:11 | disposition home or self-care (01) ==
PROVIDERS: Emergency Provider Emergency Medicine; PCP Nurse Practitioner Family
DX: T15.01XA Foreign body in cornea, right eye, initial encounter (principal); F17.210 Nicotine dependence, cigarettes, uncomplicated; W44.8XXA Other foreign body entering into or through a natural orifice, initial encounter
CPT/HCPCS: 65220; 99283

== ENCOUNTER 2025-05-28 19:53 | Emergency (ER) | payer OTHER, SELFPAY ==
[2025-05-28 20:05] VITALS: BP 126/73; PULSE 90; RESP 18; TEMP 36.8; O2SAT 99; BMI 25.8
--- NOTE | 2025-05-28 20:33 | XR_ITS ---
PROCEDURE INFORMATION: Exam: XR Chest Exam date and time: 05/28/2025 8:29 PM Age: 35 years old Clinical indication: Pain; Right-sided; Additional info: Right sided rib pain TECHNIQUE: Imaging protocol: Radiologic exam of the chest. Views: 2 views. Total images: 2 COMPARISON: No relevant prior studies available. FINDINGS: Lungs: Unremarkable. No consolidation. No pulmonary vascular congestion or edema. Pleural spaces: Unremarkable. No pleural effusion. No pneumothorax. Heart/Mediastinum: Unremarkable. No cardiomegaly. No mediastinal widening or hilar enlargement. Bones/joints: Mild degenerative changes midthoracic spine. No discrete rib fractures. IMPRESSION: No acute findings.
--- NOTE | 2025-05-28 20:36 | ED_ITS ---
<Statement entered by Chrystal Byrd MD - 05/28/25 22:42> I was consulted by the SIERRA, and we discussed the complexity of the problems being addressed. I approved the treatment and management plan for this patient's care in the emergency department, thus performing a substantive portion of the medical decision making. Chrystal Byrd MD, OCTAVIA, FACEP Discharge Plan Disposition Patient Disposition: Home, Self-Care Prescriptions Prescriptions: New prednisone 20 mg tablet 20 mg PO BID 7 Days Qty: 14 0RF ketorolac 10 mg tablet 10 mg PO Q8H 5 Days Qty: 15 0RF No Action azithromycin 250 mg tablet See Rx Instructions PO .COMPLEX Qty: 6 0RF Rx Instructions: For 250 mg dose pack: take 500 mg today (day 1), then 250 mg for 4 days (days 2-5) PO buprenorphine-naloxone [Suboxone] 8-2 mg film 2 film buccal DAILY Rx Instructions: place 1 film on inside of (each) cheek Referrals Follow up/Referrals: Christiano Camarena APRN [Primary Care Provider, Family Practice] - See instructions Activity Restrictions/Add. Instructions Additional Instructions/Restrictions: Chest x-ray was okay today. Labs looked okay as well. Please take meds as directed. Follow-up with your PCP. Clinical Impressions Clinical Impression: Pain in rib Instructions Patient Instructions: DI for Atypical Chest Pain, DI for Acute Pain in Adults Print Language Print Language: Indonesian Discharge ED Provider: Chrystal Byrd General Adult HPI General Chief complaint: PAIN Stated complaint: Pain in R sternum 2 wks Time Seen by Provider: 05/28/25 20:30 Mode of Arrival: Ambulatory Source of Information: Patient Description of Symptoms (Recalled from ER Triage Doc. by RN): patient c/o right rib pain for approximately two weeks. patient denies injury. History of Present Illness HPI narrative: 35-year-old male presents to the ED today for 2 weeks of right sided rib pain. He denies any injuries. He says that he has pain with inspiration, pain with movement, pain with cough. He says he has been hurting for over 2 weeks. He denies any fevers or chills. No nausea, vomiting or diarrhea and no other problems or concerns today. Patient has no history of heart disease. Related Data Home Medications ?Medication ?Instructions ?Recorded ?Confirmed buprenorphine 8 mg-naloxone 2 mg 2 film buccal DAILY 0 11/13/24 03/18/25 sublingual film (Suboxone) Previous Rx's ?Medication ?Instructions ?Recorded azithromycin 250 mg tablet See Rx Instructions PO .COM PLEX #6 03/18/25 tabs ketorolac 10 mg tablet 10 mg PO Q8H 5 days #15 tabs 05/28/25 prednisone 20 mg tablet 20 mg PO BID 7 days #14 tabs 05/28/25 Allergies Allergy/AdvReac Type Severity Reaction Status Date / Time Cefaclor Allergy Mild Nausea Uncoded 03/18/25 18:23 [facility] Disclaimer: The information contained in this section may have been updated after the patient was seen, as this information can be updated by other users. Medical History (Updated 05/28/25 @ 21:22 by Yessica Toribio (ED), INFORMATION SECURITY ANALYST) Pharyngitis Social History Smoking Status: Current every day smoker tobacco type: cigarettes packs per day: 1 alcohol intake: never substance use type: former substance user current occupational status: unemployed Travel in the last 8 weeks?: None marital status: single number of children: 1 education level: high school service: No senior living: No Have you lived/traveled outside [place] in past 30 days?: No Contact w/someone who lives/traveled outside US past 30 days?: No Exposure to someone with infectious disease in past 14 days?: No Do you have a fever (greater than 100.4 F or 38 C)?: No Have you tested positive for COVID-19?: No Exposed to someone with COVID-19 in past 14 days?: No Do you have a sore throat?: No Do you have a cough?: No Do you have any weakness?: No Do you have any diarrhea?: No Are you experiencing any unusual bleeding?: No Do you have any muscle aches/pain?: No Do you have any abdominal pain?: No Are you experiencing loss of taste or smell?: No Other Medical History Have you received the Flu Vaccine for this season: No Have you received the Pneumonia Vaccine: No ROS Obtained: Yes Systems reviewed as appropriate & no additional complaints except as documented Constitutional Constitutional: Reports as per HPI Physical Exam General General appearance: alert and in no apparent distress Head Head exam: normocephalic Eye Eye exam: Present PERRL ENT ENT exam: Present mucous membranes moist Neck Neck exam: Present trachea midline Chest Chest inspection: Present symmetric chest wall rise and tenderness (Right side under rib cage) Respiratory Respiratory exam: Present normal lung sounds bilaterally Cardiovascular Cardiovascular exam: Present regular rate, normal rhythm, normal heart sounds, +S1 and +S2 Abdominal Exam Abdominal exam: Present soft and normal bowel sounds Extremities Exam Extremities exam: Present full ROM Neurological Exam Neurological exam: Present alert and oriented X3 Psychiatric Psychiatric exam: Present normal mood Skin Skin exam: Present warm and dry Medical Decision Making Medical Records Screening: Per USPSTF and CDC recommendations, given the prevalence of disease in our region, it is our hospital?s policy to screen for HIV and viral Hepatitis for all patients aged 18 and over and those with ongoing risk factors. Kiko Inquiry Pt receiving controlled substance: No Kiko was queried for this patient: No Vital Signs: 05/28/25 20:05 Temperature 98.3 F Temperature Source Oral Pulse Rate [Left] 90 Respiratory Rate 18 Blood Pressure [Right Arm] 126/73 Blood Pressure Mean [Right Arm] 90 Blood Pressure Source [Right Arm] Automatic Cuff Blood Pressure Position [Right Arm] Sitting 02 Sat by Pulse Oximetry 99 Oxygen Delivery Method Room Air Lab Data Lab Results 05/28/25 21:20: WBC 12.2 H, RBC 4.46 L, Hgb 14.0 L, Hct 42.1, MCV 94.4 H, MCH 31.4 H, MCHC 33.3, RDW 12.5, Plt Count 334, MPV 9.8, Neut % (Auto) 64.6, Lymph % (Auto) 21.7, Summit % (Auto) 10.1 H, Eos % (Auto) 2.9, Baso % (Auto) 0.4, Neut # (Auto) 7.9 H, Lymph # (Auto) 2.7, Summit # (Auto) 1.2 H, Eos # (Auto) 0.4, Baso # (Auto) 0.1, Sodium 132 L, Potassium 3.7, Chloride 98, Carbon Dioxide 28, Anion Gap 9.7, BUN 13, Creatinine 0.90, Estimated Creat Clear 127, Estimated GFR 97, Est GFR ( Amer) 118, Glucose 81, Calcium 9.3, Total Bilirubin 1.0, AST 37, ALT 34, Alkaline Phosphatase 98, Troponin I < 0.01, Total Protein 8.5 H, Albumin 4.8, Globulin 3.7 H, Albumin/Globulin Ratio 1.3 05/28/25 21:20 05/28/25 21:20 Orders (Tests/Meds): ED MEDICATIONS Generic Name Dose Route Start Last Admin Trade Name Asafq PRN Reason Stop Dose Admin Dexamethasone Sodium Phosphate 10 mg 05/28/25 20:45 05/28/25 20:45 Dexamethasone 4mg/Ml 5ml Mdv IM 06/27/25 20:44 10 mg Q6H MARTINEZ Administration Discontinued Medications Generic Name Dose Route Start Last Admin Trade Name Freq PRN Reason Stop Dose Admin Ketorolac Tromethamine 30 mg 05/28/25 20:34 05/28/25 20:45 Ketorolac 30mg/Ml Vial IM 05/28/25 20:35 30 mg ONCE ONE Administration ORDERS Category Date Time Status Chest XR 2 view (NOT portable) [XR chest 2V] Stat Exams 05/28/25 20:33 Completed CBC w/Auto Diff [Complete Blood Count Auto Diff] Stat Lab 05/28/25 21:20 Completed Comprehensive Metabolic Panel Stat Lab 05/28/25 21:20 Completed Trop I [Troponin I] Stat Lab 05/28/25 21:20 Completed Medical Decision Narrative: patient is a 35-year-old male presenting to the emergency department for evaluation of right sided rib with no. Patient is hemodynamically stable and nontoxic-appearing upon arrival, afebrile. Differential diagnosis includes rib injury, costochondritis, ACS,. Workup will be conducted with hematologic labs, specific imaging. Initial inventions include analgesics. PatientInitial white count was 12.2 H&H is 14 and 42 sodium was 132 otherwise electrolytes were normal and kidney function was normal liver function was also normal. We are still waiting on the troponin. Patient is PERC negative. I am still awaiting the troponin. The troponin was less than 0.01. Patient will be discharged with meds. He is to follow-up with his PCP. Patient safe for discharge home Critical Care Critical Care Time Critical Care Time: No
[2025-05-28] MEDS: DEXAMETHASONE 4MG/ML 5ML MDV 10 MG IM (20:45)
[2025-05-28] MEDS: KETOROLAC 30MG/ML VIAL 30 MG IM (20:45)
--- NOTE | 2025-05-28 20:52 | ECG_ITS ---
APPROVED REPORT Exam: Resting ECG HR:91 bpm ECG Measurements Heart Rate 91 AXES HI 135 P 79 QRSd 90 QRS 88 QT 329 T 72 QTc 378 Conclusion SINUS RHYTHM WITH SINUS ARRHYTHMIA NORMAL ECG UNCONFIRMED REPORT Electronically signed by : Michael Byrd, 05/28/2025 23:26:58
[2025-05-28 21:33] LABS: Hematocrit 42.1 % (42.0-52.0); Hemoglobin 14.0 g/dL (14.1-18.0); Immature Granulocytes % 0.3 %; Mean Corpuscular HGB Conc 33.3 g/dL (31.8-35.4); Mean Corpuscular Hemoglobin 31.4 pg (27.0-31.2); Mean Corpuscular Volume 94.4 fl (80-94); Nucleated Red Blood Cells % 0 %; Platelet Count 334 K/mm3 (142-424); Red Blood Count 4.46 M/mm3 (4.60-6.20); Red Cell Distribution Width-SD 43.6 fL; White Blood Count 12.2 K/mm3 (4.8-10.8)
[2025-05-28 21:54] LABS: Alanine Aminotransferase 34 U/L (12-78); Albumin Level 4.8 g/dl (3.5-5.0); Albumin/Globulin Ratio 1.3 (1.1-1.8); Alkaline Phosphatase 98 U/L (38-126); Anion Gap 9.7 mEq/L (5-15); Aspartate Amino Transferase 37 U/L (17-59); Bilirubin,Total 1.0 mg/dl (0.2-1.3); Blood Urea Nitrogen 13 mg/dl (9-20); Calcium 9.3 mg/dl (8.4-10.2); Carbon Dioxide 28 mmol/L (22.0-30.0); Chloride 98 mmol/L (98-107); Creatinine Clearance Estimated 127 mL/min (50-200); Creatinine,Serum 0.90 mg/dl (0.66-1.25); Estimated Glomerular Filt Rate 97 ml/min (>60); GFR (African American) 118 ML/MIN (>60); Globulin 3.7 g/dL (1.3-3.2); Glucose 81 mg/dl (74-100); Potassium 3.7 mmoL/L (3.5-5.1); Sodium 132 mmol/L (136-145); Total Protein,Serum 8.5 g/dl (6.3-8.2)
[2025-05-28 22:09] LABS: Troponin I < 0.01 ng/ml (0.00-0.034)
[2025-05-28 22:26] VITALS: BP 116/71; PULSE 83; RESP 16; TEMP 36.8; O2SAT 98
== END 2025-05-28 22:29 | disposition home or self-care (01) ==
PROVIDERS: Nurse Practitioner; Emergency Provider Student in an Organized Health Care Education/Training Program; PCP Nurse Practitioner Family
DX: R07.81 Pleurodynia (principal); F17.210 Nicotine dependence, cigarettes, uncomplicated; E87.1 Hypo-osmolality and hyponatremia
CPT/HCPCS: 71046; 80053; 84484; 85025; 93005; 96372; 99284; J1100; J1885